=== PATIENT | female | born 1975 | race African-American/Black ===

== ENCOUNTER 2016-06-29 06:59 | Emergency (ER) ==
[2016-06-29 07:04] VITALS: BP 133/85; TEMP 99.6; BMI 31.1
--- NOTE | 2016-06-29 07:36 | ED.PDOC ---
General ED Provider: Dr. NINA HENSON JR Chief Complaint: Abdominal Pain Stated Complaint: had onset pain to left abd 2 weeks ago then subsided-- returned 3 days ago--pain was intermittent--started again at 0300 but now is constant--no n/v or changes in bladder or bowel habits[End]99.6 84 16 98% 133/ 85 7/10 left side abd pain[End]contrant stabbing sharp LUQ LLQ left back. 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 Denies: Hematuria Musculoskeletal: Reports: No symptoms Skin: Reports: No symptoms Neurological: Reports: No symptoms Endocrine: Reports: No symptoms Hematologic/Lymphatic: Reports: No symptoms All Other Systems: Other Past Medical History - Past Medical History Previously Healthy: Yes Endocrine: Reports: None Cardiovascular: Reports: None Respiratory: Reports: None Hematological: Reports: None Gastrointestinal: Reports: None Genitourinary: Reports: None Neuro/Psych: Reports: None Musculoskeletal: Reports: None Cancer: Reports: None Last Menstrual Period: june 07 - Surgical History General Surgical History: Reports: Tubal ligation, . Denies: Hysterectomy (ovarian cysts removed ) - Family History Family History: Reports: None (parents allive and well no known urolithiasis) - Social History Smoking Status: Former smoker Hx Substance Use: No Alcohol Screening: None Lives: With family Physical Exam - Physical Exam Appearance: Well-appearing Pain Distress: Moderate Eyes: NICCI, EOMI, Conjunctiva clear ENT: Ears normal, Nose normal, Oropharynx normal Neck: Supple Respiratory: Airway patent, Breath sounds clear, Breath sounds equal, Respirations nonlabored Cardiovascular: RRR, Pulses normal, No rub, No murmur GI/: Soft, Nontender, No masses, Bowel sounds normal, No Organomegaly Musculoskeletal: Normal strength, ROM intact, No edema, No calf tenderness Skin: Warm, Dry, Normal color Neurological: Sensation intact, Motor intact, Reflexes intact, Cranial nerves intact, Alert, Oriented Psychiatric: Affect appropriate, Mood appropriate Interpretation - Radiology Interpretation Radiology Interpretation By: Radiologist Radiology Results: Positive Exam Interpreted: CT Scan (0.63cm stone at upj) Physician Notification - Case Discussed Physician Notified: katarina nguyen [phone] matheus called Time of Notification: :17 Physician Notified: mundo kennedy systems integration advisor no call back from dr patrick kennedy RN informed Time of Notification: 09:39 (09 dr kennedy calls will see tomorrow in office) Critical Care Note - Critical Care Note Total Time (mins): 0 Course - Course Hematology/Chemistry: 06/29/16 07:55 06/29/16 07:55 Orders, Labs, Meds: Lab Review 06/29/16 06/29/16 06/29/16 07:25 07:54 07:55 WBC 7.67 RBC 4.44 Hgb 12.6 Hct 37.7 MCV 84.9 MCH 28.4 MCHC 33.4 RDW Coeff of [place] 13.0 Plt Count 265 Immature Gran % (Auto) 0.3 Neut % (Auto) 75.5 Lymph % (Auto) 15.8 [place] % (Auto) 7.6 Eos % (Auto) 0.5 Baso % (Auto) 0.3 Immature Gran # (Auto) 0.0 Neut # 5.8 Lymph # 1.2 [place] # 0.6 Eos # 0.0 Baso # 0.0 Sodium 136 Potassium 4.4 Chloride 106 Carbon Dioxide 22 Anion Gap 12.4 BUN 13 Creatinine 1.44 H Estimated GFR (MDRD) 48.00 BUN/Creatinine Ratio 9.02 Glucose 117 H Calcium 9.4 Total Bilirubin 0.71 AST 14 L ALT 10 L Alkaline Phosphatase 84 Total Protein 7.4 Albumin 3.5 Globulin 3.9 Albumin/Globulin Ratio 0.90 Amylase 51 Lipase 11 Urine Color Yellow Urine Clarity Cloudy Urine pH 7.5 Ur Specific [place] 1.020 Urine Protein 1+ Urine Glucose (UA) Negative Urine Ketones Trace Urine Blood 2+ Urine Nitrite Negative Urine Bilirubin Negative Urine Urobilinogen 0.2 Ur Leukocyte Esterase 1+ Urine Microscopic RBC 10-20 Urine Microscopic WBC 5-10 Ur Squamous Epith Cells 5-10 Ur Renal Epithelial Cell 0-2 Urine Bacteria 3+ Urine Test Negative H. pylori IgG Antibody Negative Orders Category Date Time Status AMYLASE Stat LAB 06/29/16 07:55 Completed CBC W/ AUTO DIFF Stat LAB 06/29/16 07:55 Completed COMPREHENSIVE METABOLIC PANEL Stat LAB 06/29/16 07:55 Completed H. PYLORI SCREEN Stat LAB 06/29/16 07:55 Completed LIPASE Stat LAB 06/29/16 07:55 Completed TEST URINE [URINE ] Stat LAB 06/29/16 07:54 Completed URINALYSIS C & S IF INDICATED Stat LAB 06/29/16 07:25 Completed URINE CULTURE Stat LAB 06/29/16 07:25 Received Ciprofloxacin HCl [Cipro] MEDS 06/29/16 09:21 Discontinued 500 mg PO ONCE STA Ketorolac Tromethamine [Toradol] MEDS 06/29/16 07:51 Discontinued 60 mg IM ONCE STA CT ABDOMEN/PELVIS WO CONTRAST Stat RADS 06/29/16 07:43 Completed Medications Discontinued Medications Generic Name Dose Route Start Last Admin Trade Name Freq PRN Reason Stop Dose Admin Ciprofloxacin 500 mg 06/29/16 09:21 06/29/16 09:27 Cipro PO 06/29/16 09:22 500 mg ONCE STA Administration Ketorolac Tromethamine 60 mg 06/29/16 07:51 06/29/16 08:15 Toradol IM 06/29/16 07:52 60 mg ONCE STA Administration Vital Signs: Temp Pulse Resp BP Pulse Ox 06/29/16 06:59 99.6 F 84 16 133/85 98 Departure - Departure Time of Disposition: 09:58 Disposition: HOME SELF-CARE Discharge Problem: Calculus of kidney Instructions: Ureteral Stones (ED) Condition: Good Pt referred to PMD for follow-up: Yes (dr patrick kennedy) Additional Instructions: Dr Kennedy will see tomorrow in office [phone] may use aleve or toradol for pain (not both) may use [place] for pain not controlled return if fever over 101.0, if pain not controlled, if not urinating drink lplenty of liquids Prescriptions: Hydrocodone Bit/Acetaminophen [[place] 5-325] 1 - 2 tab PO Q6HR PRN #12 tablet PRN Reason: pain Ciprofloxacin HCl [Cipro] 500 mg PO BID #14 tablet Tamsulosin HCl [Flomax] 0.4 mg PO DAILY #30 cap.er.24h Allergies/Adverse Reactions: Allergies No Known Allergies Allergy (Unverified 06/29/16 07:05) Home Medications: Ambulatory Orders Ciprofloxacin HCl [Cipro] 500 mg PO BID #14 tablet 06/29/16 Hydrocodone Bit/Acetaminophen [[place] 5-325] 1 - 2 tab PO Q6HR PRN #12 tablet 04/16 Tamsulosin HCl [Flomax] 0.4 mg PO DAILY #30 cap.er.24h 06/29/16 Disposition Discussed With: Patient
[2016-06-29] MEDS ORDERED: TORADOL IM STA (07:51)
[2016-06-29 07:59] LABS: BILIRUBIN,URINE Negative (NEGATIVE); KETONES,URINE Trace (NEGATIVE); LEUKOCYTE ESTERASE ,URINE 1+ (NEGATIVE); NITRITE,URINE Negative (NEGATIVE); PH,URINE 7.5 (5-9); PROTEIN,URINE 1+ (NEGATIVE); URINE, BLOOD 2+ (NEGATIVE)
[2016-06-29 08:02] LABS: BASOPHILS % (AUTO) 0.3 % (0.0-3.0); EOSINOPHILS % (AUTO) 0.5 % (0.0-7.0); HEMATOCRIT 37.7 % (37.0-47.0); HEMOGLOBIN 12.6 g/dl (12.0-16.0); IMMATURE GRANULOCYTE % (AUTO) 0.3 % (0.0-5.0); LYMPHOCYTES # (AUTO) 1.2 K/uL (0.60-3.4); LYMPHOCYTES % (AUTO) 15.8 (10.0-50.0); MEAN CORPUSCULAR HEMOGLOBIN 28.4 pg (27.0-31.0); MEAN CORPUSCULAR HGB CONC 33.4 (31.8-35.4); MEAN CORPUSCULAR VOLUME 84.9 fl (81.0-99.0); MONOCYTES # (AUTO) 0.6 K/uL (0.4-2.0); MONOCYTES % (AUTO) 7.6 (0-10); NEUTROPHILS # (AUTO) 5.8 K/ul (2.0-6.9); NEUTROPHILS % (AUTO) 75.5; PLATELET COUNT 265 10^3/uL (140-440); RED BLOOD COUNT 4.44 10^6/ul (4.20-5.40); WHITE BLOOD COUNT 7.67 K/ul (4.6-10.2)
[2016-06-29 08:06] LABS: ADD URINE MICROSCOPIC YES
[2016-06-29 08:06] LABS: URINE PREGNANCY INTERNAL QC INTERNAL QC VALID
[2016-06-29 08:14] LABS: BACTERIA,URINE 3+ (NOT PRESENT)
[2016-06-29 08:17] LABS: H. PYLORI ANTIBODY NEGATIVE (NEGATIVE); H.PYLORI INTERNAL QC INTERNAL QC VALID
[2016-06-29 08:22] LABS: ALBUMIN 3.5 g/dL (3.4-5.0); ALBUMIN/GLOBULIN RATIO 0.9; ANION GAP 12.4; BILIRUBIN,TOTAL 0.71 mg/dL (0.00-1.20); BUN/CREATININE RATIO 9.02; CALCIUM 9.4 mg/dL (8.2-10.2); CREATININE 1.44 mg/dL (0.60-1.30); POTASSIUM 4.4 mmol/L (3.5-5.10); TOTAL PROTEIN 7.4 g/dL (6.4-8.2)
--- NOTE | 2016-06-29 08:47 | CT ---
EXAM: CT ABDOMEN AND PELVIS HISTORY: Abdominal pain TECHNIQUE: CT abdomen and pelvis without intravenous contrast. Images were reconstructed using 3 m m section thickness. Reformations were prepared. COMPARISON: None FINDINGS: In the upper left ureter essentially at the ureteropelvic junction. There is a 0.63 cm calculus reanna ding to moderate hydronephrosis. No other ureteral calculi are identified. Urinary bladder is withi n normal limits. No focal hepatic or splenic lesions. Gallbladder within normal limits. Pancreas and adrenal glands appear normal. Normal abdominal aorta. No gastric distension. Normal appendix and general bowel gas pattern. Uterus is unremarkable. There is a 2.2 cm cystic mass in the left adnexal probably re presenting a dominant follicle or small cyst. Bones are within normal limits and the lung bases kaya ar. IMPRESSION: 1. Moderate left hydronephrosis secondary to a 0.63 cm calculus of the upper ureter at the vesicour eteral junction. 2. Small cystic mass left adnexa. This can be correlated with ultrasound to assure simple nature.
[2016-06-29] MEDS ORDERED: CIPRO PO STA (09:21)
== END 2016-06-29 10:25 | disposition home or self-care (01) ==
LOC: ED 06:59
DX: N20.0 Calculus of kidney (principal)
CPT/HCPCS: 36415; 80053; 81001; 81025; 82150; 83690; 85025; 86677; 87086; 96372; 99283

== ENCOUNTER 2018-07-10 10:27 | Outpatient (CLI) | END 2018-07-10 10:28 | disposition home or self-care (01) | LOC: RHC-LAB 10:27 | PROVIDERS: ATTEND Nurse Practitioner Family | DX: Z00.00 Encounter for general adult medical examination without abnormal findings (principal) | CPT/HCPCS: 36415; 80053; 80061; 84443; 85025 ==

== ENCOUNTER 2018-07-18 08:41 | Outpatient (CLI) | END 2018-07-18 08:42 | disposition home or self-care (01) | LOC: RAD 08:41 | PROVIDERS: ATTEND Nurse Practitioner Family | DX: Z12.31 Encounter for screening mammogram for malignant neoplasm of breast (principal) ==